=== PATIENT | male | born 1970 | race Two or more races ===

== ENCOUNTER 2019-04-23 11:45 | Emergency (ER) | payer SELFPAY ==
[2019-04-23 11:50] VITALS: BP 127/76
[2019-04-23] MEDS ORDERED: LIDOCAINE 5% (700 MG) TRANSDERMAL ADH..PATCH TP ONE (11:58)
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
== END 2019-04-23 12:11 | disposition home or self-care (01) ==
LOC: ER 11:45
DX: M54.5 Low back pain (principal); W18.49XA Other slipping, tripping and stumbling without falling, initial encounter; F17.210 Nicotine dependence, cigarettes, uncomplicated
CPT/HCPCS: 99283

== ENCOUNTER 2019-05-31 06:20 | Emergency (ER) | payer SELFPAY ==
[2019-05-31 06:28] VITALS: BP 131/83
[2019-05-31] MEDS ORDERED: PENICILLIN V POTASSIUM 500 MG TABLET PO ONE (06:56)
[2019-05-31] MEDS ORDERED: OXYCODONE-ACETAMINOPHEN 5-325 MG TABLET PO ONE (06:56)
--- NOTE | 2019-05-31 13:11 | ER Document Report ---
Entered by REMY GREGORY SCRIBE 05/31/19 0656 Acting as scribe for:VIDHI BURGESS MD ED Oral Problem - General Chief Complaint: Toothache Stated Complaint: TOOTH ACHE Time Seen by Provider: 05/31/19 06:42 Primary Care Provider: SETH,NO [Primary Care Provider] - Follow up as needed Mode of Arrival: Ambulatory Information source: Patient Notes: This 48 year old male patient presents to the emergency department today with complaints of right sided facial swelling with associated dental pain. Patient has poor dentition throughout and does not have a dentist. Patient states he has had dental pain off and on for several months, but over the last few days his pain has increased. TRAVEL OUTSIDE OF THE [place] IN LAST 30 DAYS: No - Related Data Allergies/Adverse Reactions: No Known Allergies Allergy (Unverified 09/23/10 19:49) Past Medical History - General Information source: Patient - Social History Smoking Status: Current Every Day Smoker Cigarette use (# per day): Yes Frequency of alcohol use: Occasional Drug Abuse: None Lives with: Family Family History: Reviewed & Not Pertinent Patient has suicidal ideation: No Patient has homicidal ideation: No Musculoskeletal Medical History: Reports Hx Musculoskeletal Trauma Traumatic Medical History: Reports: Hx Fractures Past Surgical History: Reports: Hx Cholecystectomy, Hx Orthopedic Surgery - LLE amputee, R bone, skin, muscle graft, L arm repair - Immunizations Hx Diphtheria, Pertussis, Tetanus Vaccination: Yes Review of Systems - Review of Systems Constitutional: No symptoms reported EENT: See HPI, Mouth pain, Mouth swelling, Dental problem Cardiovascular: No symptoms reported Respiratory: No symptoms reported Gastrointestinal: No symptoms reported Genitourinary: No symptoms reported Male Genitourinary: No symptoms reported Musculoskeletal: No symptoms reported Skin: No symptoms reported Hematologic/Lymphatic: No symptoms reported Neurological/Psychological: No symptoms reported -: Yes All other systems reviewed and negative Physical Exam - Vital signs Vitals: Temp Pulse Resp BP Pulse Ox 98.8 F 78 18 131/83 H 95 05/31/19 06:27 05/31/19 06:27 05/31/19 06:27 05/31/19 06:27 05/31/19 06:27 - General General appearance: Appears well, Alert In distress: Mild - HEENT Head: Normocephalic, Atraumatic, Other - Right lower jaw swelling in the anterior and anterior lateral aspect. Eyes: Normal Pupils: PERRL Mouth/Lips: Other - The right upper second molar is severely decayed and broken off at the gum. The area is very tender with some swelling and no abscess. The right lower first molar is severely decayed and broken off at the gum and exquisitely tender. Surrounding gum tissue is very swollen with no obvious abscess found. Floor the mouth under the tongue does not have any significant swelling. Several other teeth are severely decayed and broken off. Pharynx: Normal - Infectious than there should be a face - Respiratory Respiratory status: No respiratory distress - Cardiovascular Rhythm: Regular - Abdominal Inspection: Normal - Back Back: Normal - Extremities General upper extremity: Normal inspection General lower extremity: Other - Left AKA - Neurological Neuro grossly intact: Yes - Psychological Associated symptoms: Normal affect, Normal mood - Skin Skin Temperature: Warm Skin Moisture: Dry Skin Color: Normal Course - Vital Signs Vital signs: Temp Pulse Resp BP Pulse Ox 98.8 F 78 18 131/83 H 95 05/31/19 06:27 05/31/19 06:27 05/31/19 06:27 05/31/19 06:27 05/31/19 06:27 Discharge - Discharge Clinical Impression: Infected dental caries Condition: Stable Disposition: HOME, SELF-CARE Additional Instructions: Dental Infection or Abscess You have an infection, perhaps an abscess (pus formation) of the gum around one of your teeth, which is probably decayed. If there is an abscess, it may drain on its own or it may need to be opened or lanced. Severe swelling or drainage around a tooth usually means a deep dental abscess which usually requires evaluation and treatment by a dentist or oral surgeon. Antibiotics may be prescribed while awaiting dental treatment. If you develop high fever with chills, worsening pain, or increasing swelling in the area, see a dentist or oral surgeon immediately or return to the Emergency Department immediately. Take medications as prescribed. Use warm soaks to your jaw. Call a local dentist to schedule an appointment for next week for follow-up. RETURN TO THE EMERGENCY ROOM IF ANY NEW OR WORSENING SYMPTOMS. Prescriptions: Penicillin V Potassium [Penicillin Vk 500 mg Tablet] 500 mg PO QID #30 tablet Oxycodone HCl/Acetaminophen [Percocet 5-325 mg Tablet] 1 tab PO ASDIR PRN #12 tablet PRN Reason: Referrals: LOCALMD,NO [Primary Care Provider] - Follow up as needed I personally performed the services described in the documentation, reviewed and edited the documentation which was dictated to the scribe in my presence, and it accurately records my words and actions.
== END 2019-05-31 07:33 | disposition home or self-care (01) ==
LOC: ER 06:20
DX: K04.7 Periapical abscess without sinus (principal); K02.9 Dental caries, unspecified; K08.89 Other specified disorders of teeth and supporting structures; R22.0 Localized swelling, mass and lump, head; F17.210 Nicotine dependence, cigarettes, uncomplicated
CPT/HCPCS: 99282

== ENCOUNTER 2020-01-27 14:02 | Emergency (ER) | payer SELFPAY ==
--- NOTE | 2020-01-27 15:42 | ER Document Report ---
ED General - General Stated Complaint: FALL FOOT PAIN BACK PAIN Time Seen by Provider: 01/27/20 15:41 TRAVEL OUTSIDE OF THE [place] IN LAST 30 DAYS: No - HPI Notes: 49-year-old male presents to ED for evaluation of low back pain and right foot pain sustained 4 days ago with fall. Patient reports that he was walking when he tripped on a step and wedged his right foot under the step when falling forward. Reports that he was able to catch himself however he does have pain to the left low back that is worse with ambulation. Patient does have a left lower extremity BKA. States that he has been taking ibuprofen as well as using hot packs to the low back without improvement. Notes he has been elevating the leg right lower extremity and has noticed some of the swelling has gone down however there is still swelling present to the dorsal aspect of the foot. He does have full range of motion of his toes. He denies any loss of consciousness. Patient is not anticoagulated. Denies any other complaints. - Related Data Allergies/Adverse Reactions: No Known Allergies Allergy (Unverified 09/23/10 19:49) Past Medical History - Social History Smoking Status: Unknown if Ever Smoked Family History: Reviewed & Not Pertinent - Medical History Medical History: Negative Neurological Medical History: Denies: Hx Seizures Musculoskeletal Medical History: Reports Hx Musculoskeletal Trauma Traumatic Medical History: Reports: Hx Fractures Past Surgical History: Reports: Hx Cholecystectomy, Hx Orthopedic Surgery - LLE amputee, R bone, skin, muscle graft, L arm repair - Immunizations Hx Diphtheria, Pertussis, Tetanus Vaccination: Yes Review of Systems - Review of Systems Notes: Constitutional: Negative for fever. HENT: Negative for sore throat. Eyes: Negative for visual changes. Cardiovascular: Negative for chest pain. Respiratory: Negative for shortness of breath. Gastrointestinal: Negative for abdominal pain, vomiting or diarrhea. Genitourinary: Negative for dysuria. Musculoskeletal: + for back pain. Skin: Negative for rash. Neurological: Negative for headaches, weakness or numbness. 10 point ROS negative except as marked above and in HPI. Physical Exam - Vital signs Vitals: Temp Pulse Resp BP Pulse Ox 98.1 F 88 16 125/83 96 01/27/20 15:37 01/27/20 15:37 01/27/20 15:37 01/27/20 15:37 01/27/20 15:37 General: No acute distress. Alert and oriented x3. Skin: Intact without any jaundice, pallor, or erythema. Warm and dry. Heart: Regular rate and rhythm. S1,S2. No murmurs, rubs, or gallops. Lungs: Clear to ausculation bilaterally. No wheezes, rhonchi, rales. Equal chest expansion. No retractions. Abdomen: Soft, nontender to palpation, nondistended. Positive bowel sounds in all 4 quadrants. No masses. No CVA tenderness bilaterally. Cervical spine/Thoracic spine/Lumbosacral spine: No tendeness over spinous processes. Left lumbosacral paraspinous muscular tenderness. No edema, erythema, warmth, crepitance, step- off or deformity. Full range of motion. Extremities: Left BKA amputation with prosthetic in place. strength 5+ in bilateral upper and right lower extremity. Deep tendon reflexes are 2+ bilaterally. Tactile sensation is intact. Brisk capillary refill. Radial and pedal pulses 2+ bilaterally. Positive straight leg raise to lower extremity bilaterally. Gait steady with pain. Swelling over the dorsal right forefoot. No tenderness to palpation along the 5th MTP. Neuro: GCS 15. Moving all extremities without discomfort. Psych: Mood and affect appropriate. Course - Re-evaluation Re-evalutation: 01/27/20 15:49 49-male with history of left lower extremity BKA presents to ED for evaluation of fall sustained several days ago with right foot pain and low back pain. Patient did not have any symptoms concerning for cauda equina syndrome or abscess. Due to his fall patient was evaluated with x-rays of the back as well as the foot and ankle. Imaging was found to be negative for acute evidence of fractures or dislocations. Pain is most likely muscular in nature. Patient will be treated symptomatically with tordol. Patient was advised to avoid driving, operating heavy machinery, or drinking alcohol when taking narotic pain medication and/or muscle relaxers. Advised no heavy lifting or twisting. Patient is advised to alternate ice and heat to the affected area 20 minutes on and 20 minutes off throughout the day. Patient is advised to follow up with their primary doctor. Patient understands that they may need to follow up with an orthopedist and may need an MRI for further evaluation. Patient is advised to return if any worsening of symptoms. Patient understands indications to return to the ER. Patient is agreeable with this plan. 01/28/20 18:18 - Vital Signs Vital signs: Temp Pulse Resp BP Pulse Ox 98.4 F 80 18 126/88 H 98 01/27/20 17:35 01/27/20 17:35 01/27/20 17:35 01/27/20 17:35 01/27/20 17:35 - Laboratory Results Critical Laboratory Results Reviewed: No Critical Results - Radiology Results Critical Radiology Results Reviewed: No Critical Results Discharge - Discharge Clinical Impression: Low back pain Qualifiers: Chronicity: acute Back pain laterality: unspecified Sciatica presence: without sciatica Qualified Code(s): M54.5 - Low back pain Low back strain Qualifiers: Encounter type: initial encounter Qualified Code(s): S39.012A - Strain of muscle, fascia and tendon of lower back, initial encounter Contusion of right foot Qualifiers: Encounter type: initial encounter Qualified Code(s): S90.31XA - Contusion of right foot, initial encounter Disposition: HOME, SELF-CARE Instructions: Contusion ([facility]), Upper Back Strain ([facility]) Prescriptions: Ketorolac Tromethamine [Toradol 10 mg Tablet] 10 mg PO Q8HP PRN #15 tablet PRN Reason: Cyclobenzaprine HCl [Flexeril 10 mg Tablet] 10 mg PO TIDP PRN #15 tab PRN Reason:
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
[2020-01-27 17:46] VITALS: BP 126/88
== END 2020-01-27 17:37 | disposition home or self-care (01) ==
LOC: ER 14:02
DX: S39.012A Strain of muscle, fascia and tendon of lower back, initial encounter (principal); S90.31XA Contusion of right foot, initial encounter; W10.9XXA Fall (on) (from) unspecified stairs and steps, initial encounter; Y93.01 Activity, walking, marching and hiking; Z89.512 Acquired absence of left leg below knee
CPT/HCPCS: 72110; 99284